=== PATIENT | female | born 1930 | race Hispanic/Latino ===

== ENCOUNTER 2018-06-20 14:02 | Inpatient (IN) | payer MEDICARE ==
--- OUTSIDE RECORDS SUMMARY | 2018-06-20 14:04 | XMS REPORT ---
:1930 Author Organization e[employer] Care Team Providers Name Role Phone Eliza Donaldson Provider Role Unavailable Allergies No Known Allergies Problems Problem Type Condition Code Onset Dates Condition Status Problem Gastroesophageal reflux disease, K21.9 Active esophagitis presence not specified Problem Dorsalgia, unspecified M54.9 Active Problem Pain in right foot M79.671 Active Problem Diabetes type 2, uncontrolled E11.65 Active Problem GERD (gastroesophageal reflux K21.9 Active disease) Problem Cancer C80.1 Active Problem Hypokalemia E87.6 Active Problem Other chronic pain G89.29 Active Problem Weakness R53.1 Active Problem Thrombocytopenia D69.6 Active Problem Malignant neoplasm of female C50.919 Active breast, unspecified estrogen receptor status, unspecified laterality, unspecified site of breast Problem Uncontrolled type 2 diabetes E11.65 Active mellitus without complication, without long-term current use of insulin Problem At risk for falling Z91.81 Active Problem Pain of left foot M79.672 Active Medications No Known Medications Results No Known Results Summary Purpose [employer] Submission
--- OUTSIDE RECORDS SUMMARY | 2018-06-20 14:04 | XMS REPORT ---
:1930 Author Organization [employer]Works Care Team Providers Name Role Phone Eliza Donaldson Provider Role Unavailable Allergies, Adverse Reactions, Alerts Substance Reaction Event Type N.K.D.A. Info Not Available Non Drug Allergy Problems Problem Type Condition Code Onset Dates Condition Status Problem At risk for falling Z91.81 Active Assessment Pain in right foot M79.671 Active Problem Pain of left foot M79.672 Active Assessment Pain of left foot M79.672 Active Problem Gastroesophageal reflux disease, K21.9 Active esophagitis presence not specified Problem Dorsalgia, unspecified M54.9 Active Problem Pain in right foot M79.671 Active Problem Diabetes type 2, uncontrolled E11.65 Active Problem GERD (gastroesophageal reflux K21.9 Active disease) Assessment Other chronic pain G89.29 Active Assessment At risk for falling Z91.81 Active Problem Cancer C80.1 Active Assessment Weakness R53.1 Active Problem Hypokalemia E87.6 Active Problem Other chronic pain G89.29 Active Problem Weakness R53.1 Active Problem Thrombocytopenia D69.6 Active Assessment Thrombocytopenia D69.6 Active Assessment Gastroesophageal reflux disease, K21.9 Active esophagitis presence not specified Assessment Dorsalgia, unspecified M54.9 Active Assessment Malignant neoplasm of female C50.919 Active breast, unspecified estrogen receptor status, unspecified laterality, unspecified site of breast Problem Malignant neoplasm of female C50.919 Active breast, unspecified estrogen receptor status, unspecified laterality, unspecified site of breast Problem Uncontrolled type 2 diabetes E11.65 Active mellitus without complication, without long-term current use of insulin Assessment Hypokalemia E87.6 Active Assessment Uncontrolled type 2 diabetes E11.65 Active mellitus without complication, without long-term current use of insulin Medications Medication Code Code Instructions Start End Status Dosage System Date Date Ranitidine HCl [facility] 10398971522 150 MG Orally Active 1 capsule Once a day at bedtime Onglyza ND 03238054705 5 MG Orally Active 1 tablet Once a day Metformin HCl [facility] 65282958915 500 MG Orally June Active 1 tablet Twice a day 2017 with a meal Klor-Con M10 [facility] [address]-84 10 MEQ Orally Active 1 tablet Once a day with food Vitamin D3 [facility] 01129525855 1000 UNIT Active 1 capsule Orally Once a day Sotalol HCl [facility] 95051453187 80 MG Orally Active 1 tablet every 12 hrs Letrozole [facility] 68659815711 2.5 MG Orally Active 1 tablet Once a day Results No Known Results Summary Purpose eClinicalWorks Submission
--- OUTSIDE RECORDS SUMMARY | 2018-06-20 14:04 | XMS REPORT ---
:1930 Author Organization [facility] Address [address] [place] [address] Dr. Webb [address] [place] [id number] Care Team Providers Name Role Phone Unavailable Unavailable Unavailable Problems This patient has no known problems. Allergies, Adverse Reactions, Alerts This patient has no known allergies or adverse reactions. Medications This patient has no known medications.
--- OUTSIDE RECORDS SUMMARY | 2018-06-20 14:04 | XMS REPORT ---
:1930 Author Organization eClinicalWorks Care Team Providers Name Role Phone Edilace Eliza Provider Role Unavailable Allergies, Adverse Reactions, Alerts Substance Reaction Event Type N.K.D.A. Info Not Available Non Drug Allergy Problems Problem Type Condition Code Onset Dates Condition Status Problem Hypokalemia E87.6 Active Problem Malignant neoplasm of female C50.919 Active breast, unspecified estrogen receptor status, unspecified laterality, unspecified site of breast Problem Thrombocytopenia D69.6 Active Problem Other chronic pain G89.29 Active Problem GERD (gastroesophageal reflux K21.9 Active disease) Problem Cancer C80.1 Active Problem Diabetes type 2, uncontrolled E11.65 Active Problem At risk for falling Z91.81 Active Problem Uncontrolled type 2 diabetes E11.65 Active mellitus without complication, without long-term current use of insulin Problem Dorsalgia, unspecified M54.9 Active Problem Gastroesophageal reflux disease, K21.9 Active esophagitis presence not specified Medications Medication Code Code Instructions Start End Status Dosage System Date Date Vitamin D3 [facility] 07920737123 1000 UNIT Orally Active 1 capsule Once a day Letrozole [facility] 36531957942 2.5 MG Orally Active 1 tablet Once a day Potassium ND 41998319574 10 MEQ/50ML Active not Chloride Intravenous defined Sotalol HCl [facility] 76904383968 80 MG Orally Active 1 tablet every 12 hrs Onglyza ND 49385213044 5 MG Orally Once Active 1 tablet a day Klor-Con M10 ND 98318791253 10 MEQ Orally Active 1 tablet Twice a day with food Ranitidine HCl ND 84565404141 150 MG Orally Active 1 capsule Once a day at bedtime Results No Known Results Summary Purpose eClinicalWorks Submission
--- OUTSIDE RECORDS SUMMARY | 2018-06-20 14:05 | XMS REPORT ---
[...] Pain of left foot M79.672 Active Medications Medication Code Code Instructions Start End Date Status Dosage System Date Metformin HCl [facility] 93163517362 500 MG Orally August 20, Active 1 tablet twice daily 2017 with a meal Results No Known Results Summary Purpose eClinicalWorks Submission
[2018-06-20 14:25] LABS: Arterial Blood Carboxyhemoglob 3.1 % (0-1.5); Blood Gas Oxyhemoglobin 96.3 % (94-97)
[2018-06-20] MEDS ORDERED: NA CHLORIDE 0.9% 1,000 ML ONE (14:28)
[2018-06-20] MEDS ORDERED: LEVALBUTEROL 1.25 MG/3 ML NEB ONE (14:28)
[2018-06-20] MEDS ORDERED: METHYLPREDNISOLONE 125 MG INJ ONE (14:28)
[2018-06-20] MEDS ORDERED: CEFTRIAXONE/SWI 1gm 1 GM/10 ML SYR ONE (14:28)
[2018-06-20] MEDS ORDERED: AZITHROMYCIN IV 500 MG in NA CHLORIDE 0.9% 250 ML IVPB ONE (14:30)
[2018-06-20 14:39] LABS: Protime INR 2.61
--- NOTE | 2018-06-20 15:05 | RAD REPORT ---
EXAM DESCRIPTION: RAD - Chest Single View - 06/20/2018 2:52 pm CLINICAL HISTORY: Dyspnea COMPARISON: August 2015 TECHNIQUE: AP portable chest image was obtained 1439 hours . FINDINGS: Fibrotic lung pattern is present. Interstitial pattern is increased slightly from the prio r study suggesting a mild interstitial edema or infiltrate. No peripheral mass or consolidation. Heart and vasculature are normal. No measurable pleural effusion and no pneumothorax. No acute bony abnormality seen. No acute aortic findings suspected. IMPRESSION: Suspected mild interstitial edema or infiltrate. No focal mass or consolidation.
[2018-06-20 15:10] LABS: Urine Blood NEGATIVE (NEG); Urine Glucose NEGATIVE (NEG); Urine Protein 1+ (NEG); Urine Specific Gravity 1.015 (1.005-1.030)
[2018-06-20 15:12] LABS: Albumin 2.3 g/dL (3.4-5.0); Bilirubin Direct 0.8 mg/dL (0-0.2); Bilirubin Total 2.5 mg/dL (0.2-1.0); CKMB Creatine Kinase MB 1.5 ng/mL (0.3-3.6); Magnesium 2.2 mg/dL (1.8-2.4); Potassium 5.1 mmol/L (3.5-5.1); Protein, Total 5.8 g/dL (6.4-8.2); Troponin (Emerg Dept Use Only) 0.02 ng/mL (0.0-0.045)
[2018-06-20 15:22] LABS: Absolute Lymphocytes (CBC) 0.8 K/uL (0.7-4.9); Absolute Monocytes 0.6 K/uL (0.1-1.3); Absolute Neutrophil 5.2 K/uL (1.8-8.0); Basophils % 0.1 % (0-1.3); Hematocrit 24.7 % (36.0-45.0); Lymphocytes % 11.8 % (15.3-44.8); MPV 12.1 fL (7.6-11.3); Monocytes % 9.6 % (3.3-12.3); RBC Red Blood Cell Count 2.44 M/uL (3.86-4.86)
[2018-06-20 15:23] LABS: Urine Bacteria 20-50 /HPF (<20); Urine Culture Reflex Order REFLEXED; Urine RBC NONE SEEN /HPF (NONE SEEN)
[2018-06-20] MEDS ORDERED: FUROSEMIDE 40 MG/4 ML VIAL ONE (15:24)
--- NOTE | 2018-06-20 16:29 | ER ---
Nurse's Notes [facility] Name: Ashley Freed Age: 87 yrs Sex: Female : 1930 Arrival Date: 06/20/2018 Time: 14:07 Bed 3 Private MD: Diagnosis: Urinary tract infection, site not specified;Acute respiratory failure;Acute pulmonary edema;Acute systolic (congestive) heart failure;Anemia;Thrombocytopenia, unspecified Presentation: 06/20 13:59 Presenting complaint: EMS states: respiratory distress noted by senior living staff sv after lunch, pt was mouth breathing and on O2 \T\ 5L per NC with a O2 sat of 77%. Pt was placed on 100% NRB and O2 sat was in the 80s. On EMS arrival pt given an A\T\A breathing treatment, rales noted. BP 120/74 HR-102 96% on breathing tx, BS-413 Temp-97.7. Transition of care: patient was received from another setting of care (long-term care facility), [facility]. Onset of symptoms was June 20, 2018. Risk Assessment: Do you want to hurt yourself or someone else? Patient reports no desire to harm self or others. Initial Sepsis Screen: Does the patient meet any 2 criteria? RR > 20 per min. HR > 90 bpm. Yes Does the patient have a suspected source of infection? No. Patient's initial sepsis screen is negative. Care prior to arrival: Medication(s) given: Albuterol Neb x 1, Atrovent Neb x 1, Glucose check: 413. 13:59 Method Of Arrival: EMS: [facility] sv 13:59 Acuity: DEB 1 sv Triage Assessment: 14:00 General: Appears distressed, uncomfortable, well developed, Behavior is cooperative, sv appropriate for age, anxious. Pain: Denies pain. Neuro: Level of Consciousness is awake, alert, obeys commands, Oriented to person, Moves all extremities. Respiratory: Airway is patent Respiratory effort is even, labored, Respiratory pattern is symmetrical, tachypnea Breath sounds with wheezes bilaterally. Onset: The symptoms/episode began/occurred today, the patient has severe shortness of breath. Derm: Skin is thin, with poor turgor Skin is jaundiced. 20:50 Respiratory: Reports pt A\T\O X 0. no report from pt. jd3 Historical: - Allergies: 14:14 No Known Allergies; sv - PMHx: 14:14 Asthma; breast cancer; heart valve leak; Hyperlipidemia; Osteoporosis; osteroarthritis; sv pulmonary embolisim; - PSHx: 14:14 left mastectomy; Bladder suspension; right knee replacement; Hysterectomy; sv Appendectomy; Cholecystectomy; - Immunization history:: Adult Immunizations up to date. - Social history:: Smoking status: Patient/guardian denies using tobacco. - Ebola Screening: : No symptoms or risks identified at this time. Screenin:03 Abuse screen: Denies threats or abuse. Denies injuries from another. Nutritional sv screening: No deficits noted. Tuberculosis screening: No symptoms or risk factors identified. Fall Risk No fall in past 12 months (0 pts). Secondary diagnosis (15 points) dementia, IV access (20 points). Ambulatory Aid- None/Bed Rest/Nurse Assist (0 pts). Gait- Normal/Bed Rest/Wheelchair (0 pts) Mental Status- Overestimates/Forgets Limitations (15 pts.). Total Flores Fall Scale indicates High Risk Score (45 or more points). Fall prevention measures have been instituted. Side Rails Up X 2 Placed Close to Nursing Station Frequent Obs/Assessments Occuring Family Present and informed to notify staff if the need to leave the bedside As available patient and family educated on Fall Prevention Program and Strategies. Assessment: 14:50 Reassessment: Patient appears in no apparent distress at this time. Patient states sv symptoms have improved. Respiratory: Airway is patent Respiratory effort is even, unlabored, Respiratory pattern is symmetrical, tachypnea. 14:55 Reassessment: Inside lab at the bedside to obtain 2nd set of blood cultures. sv 15:30 Reassessment: Patient appears in no apparent distress at this time. Patient states sv symptoms have improved. Cardiovascular: Rhythm is sinus tachycardia. Respiratory: Airway is patent Respiratory effort is even, unlabored, Respiratory pattern is symmetrical, tachypnea. 16:30 Reassessment: Patient appears in no apparent distress at this time. Patient states sv symptoms have improved. Respiratory: Airway is patent BIPAP remains in place. Respiratory effort is even, unlabored, Respiratory pattern is symmetrical, tachypnea. 17:15 Reassessment: Dr Hall in to see the pt. sv 17:41 Reassessment: Patient appears in no apparent distress at this time. Patient states sv symptoms have improved. Respiratory: Airway is patent Respiratory effort is even, unlabored, Respiratory pattern is symmetrical, tachypnea. 18:11 Reassessment: 2 unsuccessful attempt to draw second lactate and Type and screen. Lab aa5 contacted and stated they will come and draw. . 18:15 Reassessment: Patient appears in no apparent distress at this time. Patient states sv symptoms have improved. Respiratory: Airway is patent BIPAP remains in place. Respiratory effort is even, unlabored, Respiratory pattern is symmetrical, tachypnea. 19:10 General: Appears uncomfortable, Behavior is restless. Pain: Unable to use pain scale. jd3 Does not appear to understand pain scale. Patient appears confused. Neuro: Level of Consciousness is awake, confused, Oriented to none. Respiratory: Airway is patent Respiratory effort is even, unlabored, Respiratory pattern is symmetrical, tachypnea Breath sounds with wheezes bilaterally. 19:15 Reassessment: No changes from previously documented assessment. Patient and/or family jd3 updated on plan of care and expected duration. Pain level reassessed. attempted IV start. 20:29 Reassessment: No changes from previously documented assessment. Patient and/or family jd3 updated on plan of care and expected duration. Pain level reassessed. 20:45 Reassessment: report called to Esme SCHWARTZ. jd3 21:15 Reassessment: pt held in ER, charge nurse spoke with Dr. Palomares so doctor can evaluate pt.jd3 21:27 Reassessment: No changes from previously documented assessment. Patient and/or family jd3 updated on plan of care and expected duration. Pain level reassessed. 22:08 Reassessment: Dr Palomares at bedside for pt evaluation. bb 22:09 Reassessment: Dr. Palomares notified of low blood pressure. new orders received. jd3 Vital Signs: 13:59 BP 111 / 51; Pulse 116; Resp 42; Pain 0/10; sv 14:46 BP 129 / 94; Pulse 114; Resp 30; Pulse Ox 100% on BiPAP; sv 15:30 Weight 61.23 kg; sv 15:35 BP 93 / 58; Pulse 114; Resp 26; Temp 98.8(R); Pulse Ox 50% BiPAP; sv 16:37 BP 121 / 70; Pulse 109; Resp 34; Pulse Ox 50% BiPAP; sv 17:34 BP 95 / 49; Pulse 108; Resp 30; Pulse Ox 50% BiPAP; sv 19:00 BP 97 / 49; Pulse 108; Resp 30; Pulse Ox 100% on 50% BiPAP; sv 20:22 BP 90 / 50; Pulse 106; Resp 30; Pulse Ox 100% on 50% BiPAP; jd3 21:27 BP 113 / 88; Pulse 108; Resp 28 S; Pulse Ox 100% on 50% BiPAP; jd3 22:10 BP 93 / 72; jd3 ED Course: 14:05 O2 via Placed on Bipap by Anna RAMIREZ. Ralf SALINAS at bedside. sv 14:07 Patient arrived in ED. sv 14:07 Maira Rajan, EFREN is Primary Nurse. sv 14:08 Ralf Toledo PA is PHCP. jr8 14:08 Daniel Bautista MD is Attending Physician. jr8 14:10 Patient has correct armband on for positive identification. Placed in gown. Bed in low sv position. Call light in reach. Side rails up X2. supervisor cleaning and annealing on. Pulse ox on. NIBP on. 14:10 Patient placed. sv 14:13 Triage completed. sv 14:20 Initial lab(s) drawn, by ED staff, sent to lab. First set of blood cultures drawn by ED sv staff. Inserted saline lock: 24 gauge in right hand, using aseptic technique. ,using aseptic technique. done by Sowmya Kaplan RN Blood collected. 14:37 EKG done, by technical sales advisor. reviewed by Ralf SALINAS. at1 14:52 Chest Single View XRAY In Process Unspecified. EDMS 15:00 BIPAP Sent. sv 15:00 Notified Nurse Practitioner and/or Physician Furniture Sprayer of a critical lab result(s), sv [id number]. 15:31 LAB Add On Sent. sv 15:35 NT PRO-BNP Sent. sv 15:35 Urine Culture Sent. sv 15:41 CBC Smear Scan Sent. sv 16:26 Moise Hall MD is Hospitalizing Provider. jr8 16:52 US Abdomen Limited In Process Unspecified. EDMS 19:14 Primary Nurse role handed off by Maira Rajan, EFREN sv 19:23 Report given to Maribell SCHWARTZ and Brianna SCHWARTZ. sv 20:05 Missed attempt(s): 20 gauge in right antecubital area. Bleeding controlled, band aid jd3 applied, catheter tip intact. 20:15 Second set of blood cultures drawn by me. Initial lab(s) drawn, by me, sent to lab. T\T\S bb collected, blood band applied to patient. Legal drug screen obtained per protocol. 20:49 No provider procedures requiring assistance completed. Patient admitted, IV remains in jd3 place. 21:05 Inserted saline lock: 18 gauge in right EJ, using aseptic technique. ,using aseptic bb technique. by Dr Morales blood collected and sent to lab. 21:32 Notified the Hospitalist of a critical lab result(s), HGB of 6.0, HCT 20.8, and bb platelets of 35. Dr Palomares notified. Administered Medications: Discontinued: NS 0.9% (30 ml/kg) 30 ml/kg IV at bolus once; Sepsis Protocol 14:10 Not Given (Physician Discretion): NS 0.9% (30 ml/kg) 30 ml/kg IV at bolus once; Sepsis jr8 Protocol 14:50 Drug: SOLU-Medrol 125 mg Route: IVP; Site: right hand; sv 15:34 Follow up: Response: No adverse reaction sv 14:50 Drug: Xopenex (3) 1.25 mg Route: Inhalation; sv 15:30 Drug: NS 0.9% (30 ml/kg) 30 ml/kg Route: IV; Rate: bolus; Site: right hand; sv 15:30 Drug: Lasix 40 mg Route: IVP; Site: right hand; sv 15:42 Follow up: Response: No adverse reaction sv 15:32 Drug: Rocephin 1 grams Route: IV; Rate: calculated rate; Site: right hand; sv 15:35 Follow up: Response: No adverse reaction; IV Status: Completed infusion; IV Intake: 10mlsv 15:35 Drug: Zithromax 500 mg Route: IVPB; Infused Over: 1 hrs; Site: right hand; sv 17:44 Follow up: Response: No adverse reaction; IV Status: Completed infusion; IV Intake: sv 250ml 22:12 Drug: NS 0.9% 250 ml Route: IV; Rate: bolus; Site: right jugular; jd3 22:56 Follow up: Response: No adverse reaction; IV Status: Completed infusion; IV Intake: jd3 250ml Intake: 15:35 IV: 10ml; Total: 10ml. sv 17:44 IV: 250ml; Total: 260ml. sv 22:56 IV: 250ml; Total: 510ml. jd3 Output: 18:20 Urine: 800ml (Palacios); Total: 800ml. sv Outcome: 16:28 Decision to Hospitalize by Provider. jr8 23:11 Admitted to Tele accompanied by tech, via stretcher, room 213, with oxygen, with chart, jd3 Report called to Esme SCHWARTZ 23:11 Condition: stable 23:11 Instructed on the need for admit. 23:12 Patient left the ED. jd3 Signatures: Dispatcher [employer] EDMS Maira Rajan RN RN sv Ballard, Brenda RN RN Sowmya Alvarado RN RN aa5 Ralf Toledo PA PA jr8 Mei Bah, corporate risk analyst EKG Tat1 Thiago Mirza RN RN jd3 Corrections: (The following items were deleted from the chart) 15:00 13:59 Acuity: DEB 2 sv sv 17:42 14:00 Respiratory: Airway is patent Respiratory effort is even, labored, Respiratory sv pattern is symmetrical, tachypnea Onset: The symptoms/episode began/occurred today, the patient has severe shortness of breath sv 17:44 17:30 Response: No adverse reaction; IV Status: Completed infusion; IV Intake: 500ml sv sv 21:27 19:15 Reassessment: Patient appears in no apparent distress at this time. No changes jd3 from previously documented assessment. Patient and/or family updated on plan of care and expected duration. Pain level reassessed. jd3 21:27 20:29 Reassessment: Patient appears in no apparent distress at this time. No changes jd3 from previously documented assessment. Patient and/or family updated on plan of care and expected duration. Pain level reassessed. jd3 21:36 20:15 Inserted saline lock: 18 gauge in right EJ, using aseptic technique. ,using bb aseptic technique. by Dr Morales blood collected and sent to lab bb 21:51 19:15 Reassessment: No changes from previously documented assessment. Patient and/or jd3 family updated on plan of care and expected duration. Pain level reassessed. jd3 :52 19:15 Reassessment: No changes from previously documented assessment. Patient and/or jd3 family updated on plan of care and expected duration. Pain level reassessed. attempted IV start pasha ::49 Condition: stable pasha pak : Admitted to Tele accompanied by tech, via stretcher, room 213, with oxygen, with pasha chart, Report called to Esme pak :: Instructed on the need for admit, pasha pak
--- NOTE | 2018-06-20 16:29 | EDPHYS ---
Physician Documentation [facility] Name: Ashley Freed Age: 87 yrs Sex: Female : 1930 Arrival Date: 06/20/2018 Time: 14:07 Bed 3 Private MD: ED Physician Daniel Bautista HPI: 06/20 15:34 This 87 yrs old Female presents to ER via EMS with complaints of Shortness Of jr8 Breath. 15:34 The patient has shortness of breath at rest. Onset: The symptoms/episode began/occurred jr8 gradually, 2 week(s) ago, and became worse and became persistent. Duration: The symptoms are continuous. The patient's shortness of breath is aggravated by talking. Associated signs and symptoms: Pertinent positives: non-productive cough. Severity of symptoms: At their worst the symptoms were severe in the emergency department the symptoms are unchanged. It is unknown whether or not the patient has had similar symptoms in the past. The patient has been recently seen by a physician:. Patient with history of breast cancer. Recently had CT of chest completed and was found to have two new pulmonary nodules present. Concern for metastasis based on report. Family stated that she has had this dry cough that is not going away. When seen today noticed she was having difficulty breathing. EMS called at that time . Historical: - Allergies: 14:14 No Known Allergies; sv - PMHx: 14:14 Asthma; breast cancer; heart valve leak; Hyperlipidemia; Osteoporosis; osteroarthritis; sv pulmonary embolisim; - PSHx: 14:14 left mastectomy; Bladder suspension; right knee replacement; Hysterectomy; sv Appendectomy; Cholecystectomy; - Immunization history:: Adult Immunizations up to date. - Social history:: Smoking status: Patient/guardian denies using tobacco. - Ebola Screening: : No symptoms or risks identified at this time. ROS: 15:34 Eyes: Negative for injury, pain, redness, and discharge, ENT: Negative for injury, jr8 pain, and discharge, Neck: Negative for injury, pain, and swelling, Cardiovascular: Negative for chest pain, palpitations, and edema, Abdomen/GI: Negative for abdominal pain, nausea, vomiting, diarrhea, and constipation, Back: Negative for injury and pain, MS/Extremity: Negative for injury and deformity, Skin: Negative for injury, rash, and discoloration, Neuro: Negative for headache, weakness, numbness, tingling, and seizure. 15:34 Respiratory: Positive for cough, orthopnea, shortness of breath. Exam: 15:34 Eyes: Pupils equal round and reactive to light, extra-ocular motions intact. Lids and jr8 lashes normal. Conjunctiva and sclera are non-icteric and not injected. Cornea within normal limits. Periorbital areas with no swelling, redness, or edema. ENT: Nares patent. No nasal discharge, no septal abnormalities noted. Tympanic membranes are normal and external auditory canals are clear. Oropharynx with no redness, swelling, or masses, exudates, or evidence of obstruction, uvula midline. Mucous membranes moist. Neck: Trachea midline, no thyromegaly or masses palpated, and no cervical lymphadenopathy. Supple, full range of motion without nuchal rigidity, or vertebral point tenderness. No Meningismus. Abdomen/GI: Soft, non-tender, with normal bowel sounds. No distension or tympany. No guarding or rebound. No evidence of tenderness throughout. Back: No spinal tenderness. No costovertebral tenderness. Full range of motion. Skin: Warm, dry with normal turgor. Normal color with no rashes, no lesions, and no evidence of cellulitis. MS/ Extremity: Pulses equal, no cyanosis. Neurovascular intact. Full, normal range of motion. Neuro: Awake and alert, GCS 15, oriented to person, place, time, and situation. Cranial nerves II-XII grossly intact. Motor strength 5/5 in all extremities. Sensory grossly intact. Cerebellar exam normal. Normal gait. 15:34 Cardiovascular: Rate: tachycardic, Rhythm: regular, Pulses: Pulses are 2+ in right radial artery and left radial artery. Heart sounds: normal, normal S1and S2, no S3 or S4, no murmur, no rub, no gallop, Edema: 3+ edema to level of left midcalf, left ankle, left foot, right midcalf, right ankle and right foot, JVD: is not appreciated. 15:34 Respiratory: moderate respiratory distress is noted, Respirations: accessory muscle usage, tachypnea, Breath sounds: decreased breath sounds, that are mild, are heard in the left upper lobe, wheezing: expiratory that is mild, is heard diffusely, Respiratory rate: 26 Vital Signs: 13:59 BP 111 / 51; Pulse 116; Resp 42; Pain 0/10; sv 14:46 BP 129 / 94; Pulse 114; Resp 30; Pulse Ox 100% on BiPAP; sv 15:30 Weight 61.23 kg; sv 15:35 BP 93 / 58; Pulse 114; Resp 26; Temp 98.8(R); Pulse Ox 50% BiPAP; sv 16:37 BP 121 / 70; Pulse 109; Resp 34; Pulse Ox 50% BiPAP; sv 17:34 BP 95 / 49; Pulse 108; Resp 30; Pulse Ox 50% BiPAP; sv 19:00 BP 97 / 49; Pulse 108; Resp 30; Pulse Ox 100% on 50% BiPAP; sv 20:22 BP 90 / 50; Pulse 106; Resp 30; Pulse Ox 100% on 50% BiPAP; jd3 21:27 BP 113 / 88; Pulse 108; Resp 28 S; Pulse Ox 100% on 50% BiPAP; jd3 22:10 BP 93 / 72; jd3 Procedures: 21:19 Peripheral line: by aseptic technique a peripheral line was placed in the right destiney external jugular vein. MDM: 14:08 Patient medically screened. [facility] 16:24 Data reviewed: vital signs, nurses notes, lab test result(s), EKG, radiologic studies, jr8 plain films, ultrasound. Data interpreted: Pulse oximetry: on room air is 100 %. Interpretation: normal. Data interpreted: nurse monitoring: rate is 114 beats/min, rhythm is regular, with no ectopy, Interpretation: tachycardia. Counseling: I had a detailed discussion with the patient and/or guardian regarding: the historical points, exam findings, and any diagnostic results supporting the discharge/admit diagnosis, lab results, radiology results, the need for further work-up and treatment in the hospital. Physician consultation: Moise Hall MD was called at 16:25, was contacted at 16:26, regarding admission, to the telemetry unit. consult, patient's condition, and will see patient in ED. ED course: Detailed discussion with niece here and with POA. They want patient DNR/DNI. To continue to treat up until that point . 06/20 14:08 Order name: Blood Culture Adult (2) sv 06/20 14:08 Order name: BMP; Complete Time: 15:22 sv 06/20 14:08 Order name: CBC with Diff; Complete Time: 17:08 sv 06/20 14:08 Order name: Ckmb; Complete Time: 15:22 sv 06/20 14:08 Order name: CPK; Complete Time: 15:22 sv 06/20 14:08 Order name: D-Dimer; Complete Time: 15:04 06/20 14:08 Order name: Hepatic Function; Complete Time: 15:22 sv 06/20 14:08 Order name: Lipase; Complete Time: 15:22 sv 06/20 14:08 Order name: Magnesium; Complete Time: 15:22 sv 06/20 14:08 Order name: NT PRO-BNP; Complete Time: 15:22 sv 06/20 14:08 Order name: PT-INR; Complete Time: 15:04 sv 06/20 14:08 Order name: Ptt, Activated; Complete Time: 15:04 06/20 14:08 Order name: Troponin (emerg Dept Use Only); Complete Time: 15:22 06/20 14:09 Order name: ABG; Complete Time: 15:04 [facility] 06/20 14:09 Order name: Basic Metabolic Panel [facility] 06/20 14:09 Order name: Blood Culture Adult (2) [facility] 06/20 14:09 Order name: CBC with Diff [facility] 06/20 14:09 Order name: Ckmb [facility] 06/20 14:09 Order name: CPK [facility] 06/20 14:09 Order name: Lactate; Complete Time: 15:09 [facility] 06/20 14:09 Order name: LFT's [facility] 06/20 14:09 Order name: Lipase [facility] 06/20 14:09 Order name: Procalcitonin; Complete Time: 15:04 [facility] 06/20 14:09 Order name: Protime (+inr) [facility] 06/20 14:09 Order name: Ptt, Activated [facility] 06/20 14:09 Order name: Troponin (emerg Dept Use Only) [facility] 06/20 14:09 Order name: Urine Microscopic Only; Complete Time: 15:31 [facility] 06/20 14:44 Order name: CBC w/o diff 06/20 15:05 Order name: Urine Dipstick--Ancillary (enter results); Complete Time: 15:11 bd 06/20 15:17 Order name: LAB Add On [facility] 06/20 14:08 Order name: EKG; Complete Time: 14:09 sv 06/20 14:09 Order name: Chest Single View XRAY; Complete Time: 15:09 [facility] 06/20 14:09 Order name: Cardiac monitoring; Complete Time: 15:38 [facility] 06/20 14:09 Order name: EKG - Nurse/Tech; Complete Time: 15:42 [facility] 06/20 14:09 Order name: IV Saline Lock - Large Bore; Complete Time: 15:37 [facility] 06/20 14:09 Order name: Labs collected and sent; Complete Time: 15:37 [facility] 06/20 14:09 Order name: O2 Per Protocol; Complete Time: 15:37 [facility] 06/20 14:09 Order name: O2 Sat Monitoring; Complete Time: 15:38 [facility] 06/20 14:09 Order name: BIPAP [facility] 06/20 15:27 Order name: Urine Culture [facility] 06/20 15:33 Order name: NT PRO-BNP [facility] 06/20 15:41 Order name: CBC Smear Scan; Complete Time: 17:08 [facility] 06/20 15:41 Order name: TS [facility] 06/20 16:24 Order name: US Abdomen Limited; Complete Time: 17:08 [facility] 06/20 21:46 Order name: Lactate Sepsis 2 HR Follow-up [facility] 06/20 14:09 Order name: Urine Dipstick-Ancillary (obtain specimen); Complete Time: 15:38 [facility] Administered Medications: Discontinued: NS 0.9% (30 ml/kg) 30 ml/kg IV at bolus once; Sepsis Protocol 14:10 Not Given (Physician Discretion): NS 0.9% (30 ml/kg) 30 ml/kg IV at bolus once; Sepsis [facility] Protocol 14:50 Drug: SOLU-Medrol 125 mg Route: IVP; Site: right hand; sv 15:34 Follow up: Response: No adverse reaction sv 14:50 Drug: Xopenex (3) 1.25 mg Route: Inhalation; sv 15:30 Drug: NS 0.9% (30 ml/kg) 30 ml/kg Route: IV; Rate: bolus; Site: right hand; sv 15:30 Drug: Lasix 40 mg Route: IVP; Site: right hand; sv 15:42 Follow up: Response: No adverse reaction sv 15:32 Drug: Rocephin 1 grams Route: IV; Rate: calculated rate; Site: right hand; sv 15:35 Follow up: Response: No adverse reaction; IV Status: Completed infusion; IV Intake: 10mlsv 15:35 Drug: Zithromax 500 mg Route: IVPB; Infused Over: 1 hrs; Site: right hand; sv 17:44 Follow up: Response: No adverse reaction; IV Status: Completed infusion; IV Intake: sv 250ml 22:12 Drug: NS 0.9% 250 ml Route: IV; Rate: bolus; Site: right jugular; jd3 22:56 Follow up: Response: No adverse reaction; IV Status: Completed infusion; IV Intake: jd3 250ml Disposition: 16:13 Critical Care:. jr8 06/21 07:31 Co-signature as Attending Physician, Daniel Bautista MD. rn Disposition: 06/20/18 16:28 Hospitalization ordered by Moise Hall for Inpatient Admission. Preliminary diagnosis are Urinary tract infection, site not specified, Acute respiratory failure, Acute pulmonary edema, Acute systolic (congestive) heart failure, Anemia, Thrombocytopenia, unspecified. - Bed requested for Telemetry/MedSurg (Inpatient). - Status is Inpatient Admission. jd3 - Condition is Serious. - Problem is new. - Symptoms have improved. UTI on Admission? Yes Critical care time excluding procedures: 06/20 16:13 Critical care time: Bedside Care: 20 minutes, Consultation: 10 minutes, Family jr8 Intervention: 10 minutes. Total time: 40 minutes Signatures: Dispatcher [employer] Maira Jenkins RN RN sv Anderson, Corey, MD MD cha Nieto, Roman, MD MD rn Roszak, Josh, PA PA jr8 Jordana Mcfarlane RN RN df Davies, Jonathon, RN RN jd3 Corrections: (The following items were deleted from the chart) 15:38 14:08 Cardiac monitoring ordered. sv sv 15:38 14:09 Accucheck ordered. jr8 sv 15:39 14:08 Labs collected and sent ordered. sv sv 15:39 14:08 Oxygen Per Protocol ordered. sv sv 15:39 14:08 O2 Sat Monitoring ordered. sv sv 15:40 14:08 EKG - Nurse/Tech ordered. sv sv 15:40 14:08 IV Saline Lock ordered. sv sv 15:52 15:40 Angio Aorta For Dissection+CT.RAD.BRZ ordered. [facility]SC 16:28 16:28 Hospitalization Ordered by Moise Hall MD for Inpatient Admission. Preliminary jr8 diagnosis is Urinary tract infection, site not specified; Acute respiratory failure; Acute pulmonary edema; Acute systolic (congestive) heart failure; Anemia. Bed requested for Telemetry/MedSurg (Inpatient). Status is Inpatient Admission. Condition is Serious. Problem is new. Symptoms have improved. UTI on Admission? Yes. jr8 16:36 15:45 Abdomen Pelvis Wo Con+CT.RAD.BRZ ordered. [facility] EDSC 19:56 16:28 06/20/2018 16:28 Hospitalization Ordered by Moise Hall MD for Inpatient df Admission. Preliminary diagnosis is Urinary tract infection, site not specified; Acute respiratory failure; Acute pulmonary edema; Acute systolic (congestive) heart failure; Anemia; Thrombocytopenia, unspecified. Bed requested for Telemetry/MedSurg (Inpatient). Status is Inpatient Admission. Condition is Serious. Problem is new. Symptoms have improved. UTI on Admission? Yes. jr8 23:12 19:56 06/20/2018 16:28 Hospitalization Ordered by Moise Hall MD for Inpatient jd3 Admission. Preliminary diagnosis is Urinary tract infection, site not specified; Acute respiratory failure; Acute pulmonary edema; Acute systolic (congestive) heart failure; Anemia; Thrombocytopenia, unspecified. Bed requested for Telemetry/MedSurg (Inpatient). Status is Inpatient Admission. Condition is Serious. Problem is new. Symptoms have improved. UTI on Admission? Yes. df
[2018-06-20 17:04] LABS: Anisocytosis 1+; Blood Morphology Comment NOTED (NOT SEEN); Platelet Estimate DECR; Urine White Blood Cell Casts OK
[2018-06-20 17:05] LABS: Macrocytosis 1+; Polychromasia 1+
--- NOTE | 2018-06-20 17:05 | RAD REPORT ---
EXAM DESCRIPTION: US - Abdomen Exam Limited - 06/20/2018 4:52 pm CLINICAL HISTORY: elevated LFTs. Liver US COMPARISON: Abdomen Pelvis W Contrast dated 09/12/2015 FINDINGS: Diffuse fatty liver is present. No intrahepatic biliary dilatation seen. No focal liver ma ss. The gallbladder is absent. IMPRESSION: Diffuse fatty liver is noted.
[2018-06-20] MEDS ORDERED: ONDANSETRON 4 MG/2 ML VIAL IV PRN (20:47)
[2018-06-20] MEDS ORDERED: ACETAMINOPHEN 500 MG TAB PO PRN (20:47)
[2018-06-20] MEDS ORDERED: ALBUTEROL 2.5 MG/3 ML NEB SOL NEB PRN (20:47)
[2018-06-20] MEDS: METOPROLOL TAR 50 MG TAB PO SCH (21:00)
[2018-06-20] MEDS ORDERED: INSULIN -REGULAR HUMAN 50 UNIT/0.5 ML ML SQ SCH (21:00)
[2018-06-20 21:23] LABS: MPV 14.3 fL (7.6-11.3); RBC Red Blood Cell Count 2.06 M/uL (3.86-4.86)
[2018-06-20 21:25] LABS: Hematocrit 20.8 % (36.0-45.0)
[2018-06-20] MEDS ORDERED: NA CHLORIDE 0.9% 250 ML ONE (22:23)
[2018-06-21 00:04] LABS: Hematocrit 20.8 % (36.0-45.0)
[2018-06-21] MEDS ORDERED: HYDROCORTISONE SUC 100 MG INJ IV ONE (00:43)
[2018-06-21] MEDS ORDERED: INSULIN 70/30 100 UNITS/ML SQ ONE (00:45)
[2018-06-21] MEDS ORDERED: D50W 25 GM/50 ML SYRINGE IV PRN ×2 (00:48→01:13)
[2018-06-21] MEDS ORDERED: GLUCAGON 1 MG/VIAL IM PRN ×2 (00:48→01:13)
[2018-06-21] MEDS ORDERED: INSULIN GLARGINE 100 UNITS/ML SQ ONE (01:14)
[2018-06-21 01:18] LABS: Glucose Level 531 mg/dL (74-106)
[2018-06-21] MEDS ORDERED: NA CHLORIDE 0.9% 250 ML ONE (02:25)
--- NOTE | 2018-06-21 03:31 | HP ---
Date of Admission: 06/20/2018 Code Status: Do not resuscitate. Niece is the medical power of assistant county attorney. Chief Complaint: Shortness of breath. Primary Care Physician: Dr. Ospina from the nursing facility. History Of Present Illness: The patient is an 87-year-old female with past medical history of breast cancer with recently diagnosed lung nodules and lung cancer, asthma, osteoarthritis, diabetes, who i s a resident of nursing facility, also has history of blood clots of the legs, who comes into the hos pital from the nursing facility after worsening cough and shortness of breath. The patient was recen tly started on O2 at the nursing facility. The patient's symptoms are constant, moderate, progressiv karan worsening. She also has dementia and is unable to provide much of a history. The niece is prese nt at the bedside, who was able to provide history. The patient's symptoms are constant, moderate, a nd progressive. She was brought into the ER for further evaluation of her symptoms. She was found t o be hypoxic and was placed on BiPAP. She was in respiratory distress, saturating around the 80s. T he patient's chest x-ray showed some volume overload. Her lactate was elevated at 6.2. She has jairo re edema and volume overload. The patient was given breathing treatments and referred for admission. When seen in the ER, she was asleep, but arousable, not oriented, in respiratory distress. Past Medical History: Osteoarthritis, history of PE and breast cancer, hyperlipidemia, diabetes, ast hma, heart valve leak. The patient recently diagnosed with metastatic cancer to the lung. Surgical History: Hysterectomy, cholecystectomy, appendectomy, right knee replacement, left mastecto my, bladder suspension. Allergies: NO KNOWN DRUG ALLERGIES. Medications: List reviewed. Social History: The patient is a former smoker. No current drug use, alcohol use, or tobacco use. Lives in a nursing facility. Family History: Sister had cancer as well as a brother. Review of Systems: Unable to be obtained due to the patient's medical condition. Physical Examination: Vital Signs: Blood pressure 111/51, pulse 116, respirations 42, temperature 98.8, O2 100% on BiPAP, was in the 80s on room air. General: Asleep, but arousable, ill-appearing female, elderly, in respiratory distress. HEENT: Normocephalic, atraumatic. PERRLA. EOMI. Oropharynx is clear. Conjunctivae are anicteric. Neck: Supple. No JVD. Trachea midline. CV: S1, S2. Sinus tachycardia. Peripheral pulses present. Respiratory: Diminished breath sounds. No wheezing or stridor. The patient does have crackles. Th e patient is tachypneic. Use of accessory muscles is present. Gastrointestinal: Abdomen is soft, nontender, nondistended. Positive bowel sounds. Extremities: No clubbing or cyanosis. The patient has 2+ edema in bilateral lower extremities. Neuro: Cranial nerves 2-12 intact grossly. No focal neurological deficits. Speech is normal. Stre ngth is symmetric in bilateral upper and lower extremities. Skin: No rashes. Normal skin turgor. Laboratory Data: Sodium 145, potassium 5.1, chloride 114, CO2 18, BUN 59, creatinine 1.24, glucose 3 58, lactate 6.2, calcium 8.4, magnesium 2.2. Total bilirubin 2.5, AST 339, ALT 22, alkaline phosphat ase 257. CK is 96. Troponin 0.02. BNP 19,745. Albumin is 2.3. Lipase 94. Procalcitonin 0.32. A BG; pH 7.43, pCO2 26.6, PO2 163. Bicarb is 17.4. INR 2.61. D-dimer is 3371. WBC 6.6, H and H 7.2 and 24.7, platelets 45, neutrophils 78%. UA; negative nitrite, negative leukocyte esterase, no WBCs, 20-50 bacteria, less than 5 squamous epithelial cells. Chest x-ray shows suspected mild interstitia l edema or infiltrate, no focal mass or consolidation. Abdominal ultrasound shows fatty liver diseas e. Assessment And Plan: An 87-year-old female with: 1.Acute respiratory failure secondary to congestive heart failure, currently on BiPAP. We will repe at [facility]. Consult Pulmonology. Continue BiPAP. The patient has been trying to take it off. We will need frequent redirection. The patient also has hypoxia. There is a possibility of PE as she has a history. D-dimer is elevated. However, the patient also has breast cancer now with lung cancer and nodules and likely elevated due to metastatic malignancy. The patient is already on Eliquis. 2.New-onset congestive heart failure. BNP is 19,745. The patient has lower extremity edema. We wi ll start on diuretics. CHF guidelines. Consult Cardiology. Obtain echocardiogram. Strict I's and O's, daily weights. 3.Lactic acidosis, likely secondary to above. 4.Hyperchromic normocytic anemia. Hemoglobin is 7.2. We will repeat hemoglobin in 46 hours and tra nsfuse as needed for hemoglobin less than 7. 5.Acute cystitis without hematuria. The patient will be on Rocephin. Urine cultures have been obta ined. 6.Fatty liver disease. 7.Elevated liver enzymes, hyperbilirubinemia. The patient does have fatty liver disease may also be secondary to congestion from CHF. 8.Dementia, Alzheimer's type, without behavioral disturbance. 9.Diabetes mellitus, type 2, non-insulin requiring. We will start her on sliding scale insulin and monitor blood glucose levels. 10.Hyperlipidemia. We will hold statin for now. 11.History of breast cancer. 12.Generalized osteoarthritis. 13.Asthma. We will continue albuterol p.r.n. 14.Abnormal heart valve. We will obtain echocardiogram for further evaluation. 15.History of PE. The patient is on Eliquis. Currently, her D-dimer is elevated, which may be seco ndary to malignancy. We will continue blood thinners for now. 16.Thrombocytopenia. Admit the patient to med-surg, place as inpatient. The patient's medical power of assistant county attorney, niece, i s in [place], wishes for the patient to be do not resuscitate, do not intubate. Length of stay, great er than 2 midnights. /TIFFANI Voice ID: [id number]
--- NOTE | 2018-06-21 03:59 | P.PN ---
Date of Service: 06/21/18 Called re: Hgb=6.0. Went and reviewed chart. Spoke with niece. She indicated that a month ago they were informed that patient possibly had multiple lung nodules indicative of lung cancer. She had stage IV breast cancer. The family wanted to take her to her oncologist, but they were told by the automotive title clerk at the [facility] that the oncology office does not take her insurance. They were uncertain as to where to proceed as Ms. Freed had become very debilitated. She had lost a lot of weight and she was not engaging like she used to do prior to being told of the possible cancer. 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 She is in acute respiratory failure as well as ÁNGEL, and her niece, who is her MPOA, has decided that she doesn't want aggressive measures as they were contemplating hospice just this AM. If she doesn't improve with the blood transfusion, then there wish would be to make her comfortable and proceed with hospice. If she does have TTP she would require plasmapharesis which is not performed here, and with the family leaning towards hospice and her being difficult to arouse the plan would be for comfort measures in AM
[2018-06-21 05:36] LABS: Arterial Blood Carboxyhemoglob 2.8 % (0-1.5); Blood Gas Oxyhemoglobin 95.4 % (94-97); Blood O2 Saturation 98.6 % (92-98.5)
[2018-06-21 07:07] LABS: Absolute Lymphocytes (CBC) 0.3 K/uL (0.7-4.9); Absolute Monocytes 0.3 K/uL (0.1-1.3); Absolute Neutrophil 5.4 K/uL (1.8-8.0); Basophils % 0.1 % (0-1.3); Hematocrit 24.5 % (36.0-45.0); Lymphocytes % 4.7 % (15.3-44.8); Monocytes % 5.3 % (3.3-12.3); RBC Red Blood Cell Count 2.67 M/uL (3.86-4.86)
[2018-06-21 07:23] LABS: Albumin 2.1 g/dL (3.4-5.0); Bilirubin Total 1.5 mg/dL (0.2-1.0); Potassium 3.8 mmol/L (3.5-5.1); Protein, Total 5.3 g/dL (6.4-8.2)
[2018-06-21] MEDS ORDERED: INSULIN -REGULAR HUMAN 50 UNIT/0.5 ML ML SQ SCH ×2 (07:30→12:00)
--- NOTE | 2018-06-21 08:09 | RAD REPORT ---
EXAM DESCRIPTION: RAD - Chest Single View - 06/21/2018 6:43 am CLINICAL HISTORY: CHF Chest pain. COMPARISON: Chest Single View dated 06/20/2018; Chest Single View dated 09/12/2015 FINDINGS: Portable technique limits examination quality. Mild interstitial pulmonary edema is seen. The heart is mildly prominent size with a tortuous thoraci c aorta. No displaced fractures.Left axillary tail dissection clips are present. IMPRESSION: Stable findings of mild CHF.
[2018-06-21 08:44] LABS: Anisocytosis 1+; Blood Morphology Comment NOTED (NOT SEEN); Platelet Estimate DECR; Urine White Blood Cell Casts OK
[2018-06-21] MEDS ORDERED: LISINOPRIL 10 MG TAB PO SCH (09:00)
[2018-06-21] MEDS: METOPROLOL TAR 50 MG TAB PO SCH (09:00)
[2018-06-21] MEDS ORDERED: CEFTRIAXONE/SWI 1gm 1 GM/10 ML SYR IV SCH (09:00)
[2018-06-21] MEDS ORDERED: CEFTRIAXONE 1 GM/NS 50 ML 1 GM/50 ML BAG IV SCH (09:00)
--- NOTE | 2018-06-21 09:40 | CON ---
History Of Present Illness: An 87-year-old woman. Mrs. Freed came to the hospital with dyspnea , and she is found to have many signs and symptoms of congestive heart failure. She has no previous history of congestive heart failure. She has edema of the legs, mild pulmonary edema; interstitial, very elevated BNP, respiratory difficulty. She also has a profound anemia. Most recent hemoglobin i s 8.2. The lowest was 6.0, and she had a blood transfusion of 2 units yesterday. The patient has a bone marrow failure. I am not sure how many transfusion she usually gets, but I suspect this is not the first one. Her platelet count is also markedly decreased. It was below 32,000 when last checked . The patient has an official [id number] order and also when present here. Physical Examination: General: The patient is lethargic to obtunded. She would open her eyes, but not answer any question s. Lungs: Mild interstitial crackles. Heart: Reveals an S3 gallop. Abdomen: Soft. Extremities: Mild edema. Distal pulses are very diminished. She has a history of breast cancer with lung nodules, diabetes, and profound anemia, most likely from bone marrow failure. She also has a history of pulmonary embolus, osteoarthritis, asthma, and a [place] heart valve. Impression: My impression is that it would probably be useful for us to do an echocardiogram to see what kind of left ventricular dysfunction there is. It could be that she has a normal ejection fract ion with heart failure with that much anemia, with that much other underlying lung disease, and other diseases, it would be hard to tell the difference between heart failure, depressed ejection fraction, and normal without an echocar diogram. JOSEPH/TIFFANI Voice ID: [id number] Report ID: [id number]
[2018-06-21] MEDS ORDERED: LORazepam 2 MG/ML VIAL IV PRN (09:58)
[2018-06-21] MEDS ORDERED: FENTANYL CITR 100 MCG/2 ML IV PRN (09:58)
[2018-06-21] MEDS: FUROSEMIDE 40 MG/4 ML VIAL IV SCH ×2 (11:30→16:34)
--- NOTE | 2018-06-21 11:40 | EKG ---
Test Date: 2018-06-20 Test Time: 14:16:12 Supervisor Personnel Clerks: CHRISTELLE MEASUREMENT RESULTS: Intervals: Rate: 113 VT: QRSD: 70 QT: 454 QTc: 622 [place]: P: VT: QRS: 120 T: 74 INTERPRETIVE STATEMENTS: Accelerated Junctional rhythm Left posterior fascicular block Anterior infarct, age undetermined Abnormal ECG Compared to ECG 09/14/2015 05:51:31 Accelerated junctional rhythm now present Left posterior fascicular block now present Sinus rhythm no longer present Myocardial infarct finding still present Electronically Signed On 06-20-18 16:05:57 CDT by Matthew Joseph
--- NOTE | 2018-06-21 12:10 | ECHO ---
HEIGHT: 4 ft 9 in WEIGHT: 117 lb 11.2 oz DATE OF STUDY: 06/21/[address]: Moise Hall MD 2-DIMENSIONAL: YES M.MODE: YES DOPPLER: YES COLOR FLOW: YES TDS: NO PORTABLE: NO DEFINITY: NO BUBBLE STUDY: NO DIAGNOSIS: CONGESTIVE HEART FAILURE CARDIAC HISTORY: CATHERIZATION: NO SURGERY: NO PROSTHETIC VALVE: NO PACEMAKER: NO MEASUREMENTS (cm) DIASTOLIC (NORMALS) SYSTOLIC (NORMALS) IVSd 1.1 (0.6-1.2) LA Diam 3.5 (1.9-4.0) LVEF 68% LVIDd 2.8 (3.5-5.7) LVIDs 1.8 (2.0-3.5) %FS 36% LVPWd 1.0 (0.6-1.2) Ao Diam 2.5 (2.0-3.7) 2 DIMENSIONAL ASSESSMENT: RIGHT ATRIUM: POSSIBLE RIGHT ATRIUM MASS LEFT ATRIUM: NORMAL RIGHT VENTRICLE: NORMAL LEFT VENTRICLE: NORMAL TRICUSPID VALVE: NORMAL MITRAL VALVE: NORMAL PULMONIC VALVE: NORMAL AORTIC VALVE: 3 LEAFLET, SCLEROSIS PERICARDIAL EFFUSION: NONE AORTIC ROOT: NORMAL LEFT VENTRICULAR WALL MOTION: NORMAL. DOPPLER/COLOR FLOW: MILD AORTIC, MITRAL AND TRICUSPID REGURGITATION. SEVERE PULMONARY HYPERTENSION ESTIMATED RIGHT VENTRICULAR SYSTOLIC PRESSURE GREATER THAN 70mmHg. NO AORTIC STENOSIS. COMMENTS: NORMAL LEFT VENTRICULAR EJECTION FRACTION. AORTIC SCLEROSIS WITH NO AORTIC STENOSIS. MILD AORTIC, MITRAL AND TRICUSPID REGURGITATION. SEVERE PULMONARY HYPERTENSION. RIGHT ATRIAL MASS. TECHNOLOGIST: MACY GIL
[2018-06-21] MEDS ORDERED: LORazepam 2 MG/ML VIAL IV SCH ×2 (15:47→16:00)
== END 2018-06-21 16:38 | disposition hospice, inpatient (51) | DRG 291 ==
LOC: ER 14:02 → ERHOLD 17:05 → 2ND 20:55
PROVIDERS: ADMIT Family Medicine; ATTEND Family Medicine
PROC: 5A09357 Assistance with Respiratory Ventilation, Less than 24 Consecutive Hours, Continuous Positive Airway Pressure (ICD-10-PCS; 2018-06-20)
PROC: 30233N1 Transfusion of Nonautologous Red Blood Cells into Peripheral Vein, Percutaneous Approach (ICD-10-PCS; principal; 2018-06-21)
DX: I50.9 Heart failure, unspecified (principal); J96.01 Acute respiratory failure with hypoxia; E87.2 Acidosis; N30.00 Acute cystitis without hematuria; N17.9 Acute kidney failure, unspecified; D64.9 Anemia, unspecified; K76.0 Fatty (change of) liver, not elsewhere classified; E80.6 Other disorders of bilirubin metabolism; G30.9 Alzheimer's disease, unspecified; F02.80 Dementia in other diseases classified elsewhere, unspecified severity, without behavioral disturbance, psychotic disturbance, mood disturbance, and anxiety; E11.9 Type 2 diabetes mellitus without complications; Z79.84 Long term (current) use of oral hypoglycemic drugs; E78.5 Hyperlipidemia, unspecified; Z85.3 Personal history of malignant neoplasm of breast; M15.9 Polyosteoarthritis, unspecified; J45.909 Unspecified asthma, uncomplicated; Q24.8 Other specified congenital malformations of heart; Z86.711 Personal history of pulmonary embolism; Z79.01 Long term (current) use of anticoagulants; D69.6 Thrombocytopenia, unspecified; Z66 Do not resuscitate; Z51.5 Encounter for palliative care; Z87.891 Personal history of nicotine dependence
CPT/HCPCS: 36415; 71045; 76705; 80048; 80053; 80076; 81003; 81015; 82550; 82553; 82805; 82947; 82962; 83010; 83605; 83615; 83690; 83735; 83880; 84145; 84484; 84550; 85014; 85018; 85025; 85027; 85379; 85384; 85610; 85730; 86850; 86880; 86900; 86901; 87040; 87086; 87088; 93005; 93306; 94660; 94760; 96365; 96366; 96375; 99291; 99292; J0456; J0696; J1720; J1940; J2930; J7030; P9016

== ENCOUNTER 2018-06-21 16:40 | Inpatient (IN) | payer MEDICARE, OTHER ==
--- OUTSIDE RECORDS SUMMARY | 2018-06-21 16:43 | XMS REPORT ---
:1930 [facility] Organization [facility] Address [address] [place] [address] Dr. Webb [address] [place] [id number] Care Team Providers Name Role Phone Unavailable Unavailable Unavailable Problems This patient has no known problems. Allergies, Adverse Reactions, Alerts This patient has no known allergies or adverse reactions. Medications This patient has no known medications.
--- OUTSIDE RECORDS SUMMARY | 2018-06-21 16:43 | XMS REPORT ---
[...] Status Dosage System Date Date Vitamin D3 [facility] 82083125632 1000 UNIT Orally Active 1 capsule Once a day Letrozole [facility] 53178618488 2.5 MG Orally Active 1 tablet Once a day Potassium ND 92925286589 10 MEQ/50ML Active not Chloride Intravenous defined Sotalol HCl [facility] 19328825311 80 MG Orally Active 1 tablet every 12 hrs Onglyza ND 79749677120 5 MG Orally Once Active 1 tablet a day Klor-Con M10 ND 37010951692 10 MEQ Orally Active 1 tablet Twice a day with food Ranitidine HCl ND 69652097098 150 MG Orally Active 1 capsule Once a day at bedtime Results No Known Results Summary Purpose eClinicalWorks Submission
--- OUTSIDE RECORDS SUMMARY | 2018-06-21 16:44 | XMS REPORT ---
[...] Date Status Dosage System Date Metformin HCl [facility] 85414975324 500 MG Orally August 20, Active 1 tablet twice daily 2017 with a meal Results No Known Results Summary Purpose eClinicalWorks Submission
--- OUTSIDE RECORDS SUMMARY | 2018-06-21 16:44 | XMS REPORT ---
[...] Status Dosage System Date Date Ranitidine HCl [facility] 37383803473 150 MG Orally Active 1 capsule Once a day at bedtime Onglyza ND 80524245425 5 MG Orally Active 1 tablet Once a day Metformin HCl [facility] 84986697609 500 MG Orally June Active 1 tablet Twice a day 2017 with a meal Klor-Con M10 [facility] [address]-31 10 MEQ Orally Active 1 tablet Once a day with food Vitamin D3 [facility] 80795430447 1000 UNIT Active 1 capsule Orally Once a day Sotalol HCl [facility] 68259072893 80 MG Orally Active 1 tablet every 12 hrs Letrozole [facility] 26980112571 2.5 MG Orally Active 1 tablet Once a day Results No Known Results Summary Purpose eClinicalWorks Submission
--- OUTSIDE RECORDS SUMMARY | 2018-06-21 16:44 | XMS REPORT ---
:1930 Author Organization eClinicalWorks Care Team Providers Name Role Phone Elzia Donaldson Provider Role Unavailable Allergies No Known [...] Medications Results No Known Results Summary Purpose eClinicalOlacabs Submission
[2018-06-21] MEDS ORDERED: NACL 0.9% IRR SOLN 2,000 ML IRR PRN (17:12)
[2018-06-21] MEDS ORDERED: LORazepam 2 MG/ML VIAL IV PRN (17:14)
[2018-06-21] MEDS ORDERED: FENTANYL CITR 100 MCG/2 ML IV PRN (17:17)
[2018-06-21] MEDS ORDERED: PROMETHAZINE 25 MG/ML VIAL IV PRN (17:19)
[2018-06-21] MEDS: LORazepam 2 MG/ML VIAL IV SCH ×2 (18:00→20:22)
[2018-06-22] MEDS: LORazepam 2 MG/ML VIAL IV SCH ×6 (00:36→22:01)
[2018-06-22] MEDS ORDERED: LORazepam 2 MG/ML VIAL IV PRN (12:15)
[2018-06-22] MEDS ORDERED: MORPHINE 2 MG/ML SYR IV PRN (12:17)
--- NOTE | 2018-06-22 15:11 | P.HP ---
Certification for Inpatient Patient admitted to: Inpatient With expected LOS: >2 Midnights Patient will require the following post-hospital care: Hospice Practitioner: I am a practitioner with admitting privileges, knowledge of patient current condition, hospital course, and medical plan of care. Services: Services provided to patient in accordance with Admission requirements found in Title 42 Section 412.3 of the Code of Federal Regulations Patient History Date of Service: 06/22/18 History of Present Illness: 87 y/o F with Significant PMHX and recent hospitalization with acute worsening. Now Admitted to hospice for Inpatient care. Allergies No Known Allergies Allergy (Verified 05/22/15 15:13) Home Medications: Acetaminophen [Tylenol*] 2 tab PO Q6H PRN 06/21/18 Apixaban [Eliquis *] 5 mg PO BID 06/21/18 Benzonatate [Tessalon Perle*] 100 mg PO Q8H PRN 06/21/18 Bisacodyl 10 mg PO Q24H PRN 06/21/18 Cholecalciferol (Vitamin D3) [Vitamin D3] 1,000 unit PO DAILY 06/21/18 Dextromethorphan HBr [Tussin Cough] 10 mg PO Q6H PRN 06/21/18 Gabapentin 1 cap PO BID 06/21/18 Loratadine [Claritin*] 10 mg PO DAILY 06/21/18 Ranitidine HCl [Acid Control] 150 mg PO DAILY 06/21/18 - Past Medical/Surgical History Diabetic: Yes -: Diabetes -: Breast Cancer -: HLD -: osteoporosis -: osteoarthritis -: heart valve leak -: pulmonary embolism -: Hysterectomy -: Cholecystectomy -: Appendectomy -: R knee replacement - Family History Sister -: Cancer Brother -: Cancer - Social History Alcohol use: No CD- Drugs: No Caffeine use: Yes Review of Systems 10-point ROS is otherwise unremarkable Physical Examination - Vital Signs Temperature: 98.2 F Blood Pressure: 118/57 Pulse: 106 Respirations: 20 Pulse Ox (%): 95 - Physical Exam General: Acute distress, Other (On BIPAP and ill appearing) Respiratory: Diminished, Expiratory wheezes, Inspiratory wheezes Cardiovascular: Regular rate/rhythm, Normal S1 S2 Gastrointestinal: Normal bowel sounds, No tenderness Musculoskeletal: No tenderness Integumentary: No rashes Neurological: Abnormal strength, Abnormal tone, Abnormal cranial nerve function Lymphatics: No axilla or inguinal lymphadenopathy Assessment and Plan - Problems (Diagnosis) (1) Hospice care Current Visit: Yes Status: Chronic (2) Breast cancer, left Onset Date: 05/30/15 Current Visit: No Status: Chronic Qualifiers: Breast location: unspecified site of breast Estrogen receptor status: unspecified Patient sex: female Qualified Code(s): C50.912 - Malignant neoplasm of unspecified site of left female breast (3) HTN (hypertension) Current Visit: No Status: Chronic Qualifiers: Hypertension type: essential hypertension Qualified Code(s): I10 - Essential (primary) hypertension - Plan Pt with declining status and poor prognosis now admitted for hospice care Discharge Plan: Other Plan to discharge in: Greater than 2 days - Advance Directives Does patient have a Living Will: No Does patient have a Durable POA for Healthcare: Yes - Code Status/Comfort Care Code Status Assessed: Yes Code Status: Do Not Resuscitate Comfort Measures: Hospice Care Critical Care: No
[2018-06-23] MEDS: LORazepam 2 MG/ML VIAL IV SCH ×6 (01:21→20:45)
--- NOTE | 2018-06-23 15:47 | P.PN ---
Subjective Date of Service: 06/23/18 Subjective: No C/O voiced, Other (Resting Comfortably in active phase of ) Review of Systems 10-point ROS is otherwise unremarkable Physical Examination - Vital Signs Temperature: 97.3 F Blood Pressure: 108/56 Pulse: 94 Respirations: 17 Pulse Ox (%): 93 - Physical Exam General: Other (actively Dying ) Respiratory: Rhonchi/gurgles, Stridor Cardiovascular: Regular rate/rhythm Gastrointestinal: Normal bowel sounds Musculoskeletal: No tenderness Integumentary: No rashes Lymphatics: No axilla or inguinal lymphadenopathy - Studies Medications List Reviewed: Yes Assessment And Plan - Current Problems (Diagnosis) (1) Hospice care Current Visit: Yes Status: Chronic (2) Breast cancer, left Onset Date: 05/30/15 Current Visit: No Status: Chronic Qualifiers: Breast location: unspecified site of breast Estrogen receptor status: unspecified Patient sex: female Qualified Code(s): C50.912 - Malignant neoplasm of unspecified site of left female breast (3) HTN (hypertension) Current Visit: No Status: Chronic Qualifiers: Hypertension type: essential hypertension Qualified Code(s): I10 - Essential (primary) hypertension - Plan Pt with declining status and poor prognosis. Resting Comfortably now on Ativan and morphine. In Active phase of dying Discharge Plan: Other Plan to discharge in: Greater than 2 days - Code Status/Comfort Care Code Status Assessed: Yes Comfort Measures: Hospice Care Critical Care: No
[2018-06-24] MEDS: LORazepam 2 MG/ML VIAL IV SCH ×6 (00:23→21:24)
--- NOTE | 2018-06-24 13:05 | P.PN ---
Subjective Date of Service: 06/24/18 Pt continues to be on Hospice. Unresponsive Review of Systems 10-point ROS is otherwise unremarkable Physical Examination - Vital Signs Temperature: 98.0 F Blood Pressure: 112/54 Pulse: 98 Respirations: 20 Pulse Ox (%): 95 - Physical Exam General: Cachectic, Unresponsive, Comatose Respiratory: Diminished Cardiovascular: Regular rate/rhythm Gastrointestinal: Normal bowel sounds Musculoskeletal: No swelling, Contractures Neurological: Abnormal reflexes - Studies Medications List Reviewed: Yes Assessment And Plan - Current Problems (Diagnosis) (1) Hospice care Current Visit: Yes Status: Chronic (2) Breast cancer, left Onset Date: 05/30/15 Current Visit: No Status: Chronic Qualifiers: Breast location: unspecified site of breast Estrogen receptor status: unspecified Patient sex: female Qualified Code(s): C50.912 - Malignant neoplasm of unspecified site of left female breast (3) HTN (hypertension) Current Visit: No Status: Chronic Qualifiers: Hypertension type: essential hypertension Qualified Code(s): I10 - Essential (primary) hypertension - Plan Pt with declining status and poor prognosis. Resting Comfortably now on Ativan and morphine. In Active phase of dying Discharge Plan: Other Plan to discharge in: Greater than 2 days - Code Status/Comfort Care Code Status Assessed: Yes Critical Care: No
[2018-06-25] MEDS: LORazepam 2 MG/ML VIAL IV SCH ×6 (01:22→20:49)
--- NOTE | 2018-06-25 13:31 | P.PN ---
Subjective Date of Service: 06/25/18 Pt continues to be on Hospice. Unresponsive Review of Systems 10-point ROS is otherwise unremarkable Physical Examination - Vital Signs Temperature: 98.1 F Blood Pressure: 123/60 Pulse: 103 Respirations: 20 Pulse Ox (%): 98 - Physical Exam General: Unresponsive, Comatose Respiratory: Diminished, Rhonchi/gurgles Cardiovascular: Regular rate/rhythm Gastrointestinal: Hypoactive Musculoskeletal: Contractures Neurological: Abnormal speech, Abnormal cranial nerve function, Abnormal reflexes - Studies Medications List Reviewed: Yes Assessment And Plan - Current Problems (Diagnosis) (1) Hospice care Current Visit: Yes Status: Chronic (2) Breast cancer, left Onset Date: 05/30/15 Current Visit: No Status: Chronic Qualifiers: Breast location: unspecified site of breast Estrogen receptor status: unspecified Patient sex: female Qualified Code(s): C50.912 - Malignant neoplasm of unspecified site of left female breast (3) HTN (hypertension) Current Visit: No Status: Chronic Qualifiers: Hypertension type: essential hypertension Qualified Code(s): I10 - Essential (primary) hypertension - Plan Pt with declining status and poor prognosis. Resting Comfortably now on Ativan and morphine. In Active phase of dying Discharge Plan: Other Plan to discharge in: Greater than 2 days - Code Status/Comfort Care Code Status Assessed: Yes Critical Care: No
[2018-06-26] MEDS: LORazepam 2 MG/ML VIAL IV SCH ×5 (00:26→17:00)
--- NOTE | 2018-06-26 11:46 | P.PN ---
Subjective Date of Service: 06/26/18 Pt continues to be on Hospice. Unresponsive Review of Systems 10-point ROS is otherwise unremarkable Physical Examination - Vital Signs Temperature: 97.5 F Blood Pressure: 108/54 Pulse: 106 Respirations: 20 Pulse Ox (%): 98 - Physical Exam General: Comatose Respiratory: Diminished Cardiovascular: Regular rate/rhythm Gastrointestinal: Normal bowel sounds, Hypoactive Musculoskeletal: Swelling, Contractures - Studies Medications List Reviewed: Yes Assessment And Plan - Current Problems (Diagnosis) (1) Hospice care Current Visit: Yes Status: Chronic (2) Breast cancer, left Onset Date: 05/30/15 Current Visit: No Status: Chronic Qualifiers: Breast location: unspecified site of breast Estrogen receptor status: unspecified Patient sex: female Qualified Code(s): C50.912 - Malignant neoplasm of unspecified site of left female breast (3) HTN (hypertension) Current Visit: No Status: Chronic Qualifiers: Hypertension type: essential hypertension Qualified Code(s): I10 - Essential (primary) hypertension - Plan Pt with declining status and poor prognosis. Resting Comfortably now on Ativan and morphine. In Active phase of dying
[2018-06-26] MEDS: MORPHINE 2 MG/ML SYR IV SCH ×2 (12:29→17:00)
--- NOTE | 2018-07-04 10:57 | P.DS ---
Admission Date: 06/21/18 Discharge Date: 07/04/18 Disposition: - Problems (1) Hospice care Status: Chronic (2) Breast cancer, left Onset Date: 05/30/15 Status: Chronic Qualifiers: Breast location: unspecified site of breast Estrogen receptor status: unspecified Patient sex: female Qualified Code(s): C50.912 - Malignant neoplasm of unspecified site of left female breast (3) HTN (hypertension) Status: Chronic Qualifiers: Hypertension type: essential hypertension Qualified Code(s): I10 - Essential (primary) hypertension Brief History of Present Illness: 87 y/o F with Significant PMHX and recent hospitalization with acute worsening. Now Admitted to hospice for Inpatient care. Hospital Course: The patient on hospice care here in the hospital. Vital Signs/Physical Exam: Temp Pulse Resp BP Pulse Ox 97.5 F 106 H 20 108/54 L 98 06/26/18 11:45 06/26/18 11:45 06/26/18 11:45 06/26/18 11:45 06/26/18 11:45 General: Other ( ) Respiratory: Diminished Cardiovascular: Other (No Cardiac Acitivity) Neurological: Abnormal cranial nerve function, Abnormal reflexes
== END 2018-06-26 17:00 | disposition expired | DRG 951 ==
LOC: 2ND 16:40
PROVIDERS: ADMIT Family Medicine; ATTEND Family Medicine
DX: Z51.5 Encounter for palliative care (principal); C78.00 Secondary malignant neoplasm of unspecified lung; C50.912 Malignant neoplasm of unspecified site of left female breast; I10 Essential (primary) hypertension; E11.9 Type 2 diabetes mellitus without complications; E78.5 Hyperlipidemia, unspecified; M81.0 Age-related osteoporosis without current pathological fracture; M19.90 Unspecified osteoarthritis, unspecified site; R09.2 Respiratory arrest
CPT/HCPCS: 94660; 94760; J2270; J3010